=== PATIENT | male | born 1980 | race African-American/Black ===

== ENCOUNTER 2017-02-12 11:54 | Emergency (ER) | payer SELFPAY ==
[2017-02-12] MEDS ORDERED: Ketorolac Tromethamine 60 MG/2 ML VIAL ONE (12:40)
[2017-02-12] MEDS ORDERED: Acetaminophen 500 MG TAB ONE (12:40)
--- NOTE | 2017-02-12 13:35 | CT ---
CT BRAIN WITHOUT CONTRAST: HISTORY: Headaches. FINDINGS: Comparison is made with the exam of 06/01/15. No evidence of acute infarct, hemorrhage, midline shift, or abnormal extraaxial fluid collections ar e seen. The ventricular size is normal and the basilar cisterns patent. The bony calvarium is inta ct. The visualized paranasal sinuses and mastoid air cells are well aerated. IMPRESSION: No CT evidence of acute intracranial process. POS: [facility]
== END 2017-02-12 13:14 | disposition home or self-care (01) ==
LOC: NAV ERS 11:54
DX: G43.909 Migraine, unspecified, not intractable, without status migrainosus (principal); F31.9 Bipolar disorder, unspecified
CPT/HCPCS: 70450; 96372; J1885

== ENCOUNTER 2017-05-20 10:35 | Emergency (ER) | payer SELFPAY ==
[~2017-05-20 10:35] MED LIST: Iopamidol 370 76% 100 ML VIAL ONE
[2017-05-20] MEDS ORDERED: Acetaminophen/Codeine 30-300mg Tablet ONE (11:18)
[2017-05-20 11:37] LABS: #Basophils 0.1 thou/uL (0.0-0.2); #Eosinphils 0.1 thou/uL (0.0-0.7); #Lymphocytes 1.7 thou/uL (1.20-3.40); #Monocytes 0.5 thou/uL (0.11-0.59); #Neutrophils 2.3 thou/uL (1.40-6.50); %Basophils 1.6 % (0.0-1.0); %Eosinophils 2.8 % (0.0-10.0); %Lymphocytes 36.7 % (21.0-51.0); %Monocytes 10.9 % (0.0-10.0); %Neutrophils 47.9 % (42.0-75.0); Hemoglobin 15.1 g/dL (14.0-18.0); Mean Corpuscular HGB CONC 30.9 g/dL (32.0-36.0); Mean Corpuscular Volume 84.2 fl (80.0-94.0); Mean Platelet Volume 11.5 fL (7.4-10.4); Platelet Count 157 thou/uL (130-400); RBC Distribution Width 12.5 % (11.5-14.5); White Blood Cell (WBC) Count 4.7 thou/uL (4.8-10.8)
[2017-05-20 11:41] LABS: PTT 30.2 SEC (22.9-36.1); Prothrombin Time 13.5 SEC (12.0-14.7)
[2017-05-20 11:49] LABS: ALT (SGPT) 25 U/L (8-55); AST (SGOT) 18 U/L (5-34); Albumin 4.3 g/dL (3.5-5.0); Alkaline Phosphatase 65 U/L (40-150); Anion Gap 12 mmol/L (10-20); BUN (Urea Nitrogen) 15 mg/dL (8.9-20.6); Bilirubin, Total 0.5 mg/dL (0.2-1.2); Calc. Creatinine Clearance 0 mL/min (70-130); Calcium 9.6 mg/dL (7.8-10.44); Carbon Dioxide 29 mmol/L (22-29); Chloride 103 mmol/L (98-107); Estimated GFR-MDRD 69; Globulin 3.4 g/dL (2.4-3.5); Glucose 75 mg/dL (70-105); Potassium 4.1 mmol/L (3.5-5.1); Protein, Total 7.7 g/dL (6.0-8.3); Sodium 140 mmol/L (136-145)
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
== END 2017-05-20 13:28 | disposition home or self-care (01) ==
LOC: NAV ERS 10:35
DX: R51 Headache (principal); M79.1 Myalgia; V49.9XXA Car occupant (driver) (passenger) injured in unspecified traffic accident, initial encounter; F31.9 Bipolar disorder, unspecified; F17.210 Nicotine dependence, cigarettes, uncomplicated
CPT/HCPCS: 70450; 71260; 74177; 80053; 82274; 85025; 85610; 85730